=== PATIENT | male | born 1980 | race Caucasian/White ===

== ENCOUNTER 2018-09-25 12:47 | Emergency (ER) | payer OTHER ==
[2018-09-25 13:02] VITALS: BP 129/78
--- NOTE | 2018-09-25 13:41 | RAD ---
EXAM: AP, lateral and open-mouth odontoid views of the cervical spine DATE: 09/25/2018 12:59 PM CLINICAL HISTORY: DECREASED RANGE OF MOTION, PAIN RADIATING DOWN LEFT ARM. HX OF NECK SX. COMPARISON: None available. FINDINGS: On the lateral view, the cervical spine is imaged from the skull base to anterior superior T1. Vertebral body heights are preserved. Postoperative changes of C6-7 anterior cervical discectomy and fusion with solid fusion is seen without hardware complication. No evidence of acute fracture. Intervertebral disc heights are preserved. Mild straightening of the normal cervical lordosis. No spondylolisthesis. Normal predental space. No significant prevertebral soft tissue swelling. IMPRESSION: 1. Anterior cervical discectomy and fusion C6-7, solidly healed, without interval hardware complication 2. Negative acute fracture or subluxation. Electronically signed by: Zeb Love MD (09/25/2018 1:37 PM) [facility]
[2018-09-25] MEDS ORDERED: PRED-220 PO (13:43)
--- NOTE | 2018-09-25 13:44 | PHYS DOC ---
Past History Past Medical History: No Pertinent History Past Surgical History: Other Alcohol Use: None Drug Use: None Adult General Chief Complaint Chief Complaint: Neck Pain HPI HPI 38-year-old male presents with neck pain. The patient woke up this morning with increased neck pain worse on the left. The patient has intermittent episodes like this for many years. Usually it improves in one to 2 days on its own. He sometimes takes a few days of steroids. He came to the ED today because he had a new symptom of shooting pain down the left arm mostly over the deltoid muscle and down toward the elbow but not past the elbow. These waves seemed to calm at random. He also has decreased range of motion due to pain. He recently had [facility] [place] [employer] [facility], but has not gotten the results yet. He has a previous plate and screws of C5-C6. He denies fever or chills. He denies any recent trauma. His only increased activity has been extra running as he is training for a marathon. Review of Systems Review of Systems Constitutional: Denies fever or chills [] Eyes: Denies change in visual acuity, redness, or eye pain [] HENT: Neck pain[] Respiratory: Denies cough or shortness of breath [] Cardiovascular: No additional information not addressed in HPI [] GI: Denies abdominal pain, nausea, vomiting, bloody stools or diarrhea [] : Denies dysuria or hematuria [] Musculoskeletal: Denies back pain or joint pain [] Integument: Denies rash or skin lesions [] Neurologic: Denies headache, focal weakness or sensory changes [] Endocrine: Denies polyuria or polydipsia [] All other systems were reviewed and found to be within normal limits, except as documented in this note. Current Medications Current Medications Current Medications Medications (Trade) Dose Ordered Sig/[facility] Start Time Stop Time Status Last Admin Dose Admin Prednisone (Prednisone) 60 mg 1X ONCE 09/25/18 13:45 09/25/18 13:46 UNV Allergies Allergies Allergies Coded Allergies Type Severity Reaction Last Updated Verified No Known Drug Allergies 09/25/18 No Physical Exam Physical Exam Constitutional: Well developed, well nourished, no acute distress, non-toxic appearance. [] HENT: Normocephalic, atraumatic, bilateral external ears normal, oropharynx moist, no oral exudates, nose normal. [] Eyes: PERRLA, EOMI, conjunctiva normal, no discharge. [] Neck: Decreased range of motion due to pain. Paraspinal muscle tenderness worse on the left, mostly over the trapezius distribution. Recreation of pain symptoms with pressure on the first rib on the left.[] Cardiovascular:Heart rate regular rhythm, no murmur [] Lungs & Thorax: Bilateral breath sounds clear to auscultation [] Abdomen: Bowel sounds normal, soft, no tenderness, no masses, no pulsatile masses. [] Skin: Warm, dry, no erythema, no rash. [] Back: No tenderness, no CVA tenderness. [] Extremities: No tenderness, no cyanosis, no clubbing, ROM intact, no edema. [] Neurologic: Alert and oriented X 3, normal motor function, normal sensory function, no focal deficits noted. [] Psychologic: Affect normal, judgement normal, mood normal. [] Current Patient Data Vital Signs Vital Signs Date Time Temp Pulse Resp B/P (MAP) Pulse Ox O2 Delivery O2 Flow Rate FiO2 09/25/18 13:02 98.1 63 18 100 Room Air EKG EKG [] Radiology/Procedures Radiology/Procedures [] Impressions: EXAM: AP, lateral and open-mouth odontoid views of the cervical spine DATE: 09/25/2018 12:59 PM CLINICAL HISTORY: DECREASED RANGE OF MOTION, PAIN RADIATING DOWN LEFT ARM. HX OF NECK SX. COMPARISON: None available. FINDINGS: On the lateral view, the cervical spine is imaged from the skull base to anterior superior T1. Vertebral body heights are preserved. Postoperative changes of C6-7 anterior cervical discectomy and fusion with solid fusion is seen without hardware complication. No evidence of acute fracture. Intervertebral disc heights are preserved. Mild straightening of the normal cervical lordosis. No spondylolisthesis. Normal predental space. No significant prevertebral soft tissue swelling. IMPRESSION: 1. Anterior cervical discectomy and fusion C6-7, solidly healed, without interval hardware complication 2. Negative acute fracture or subluxation. Electronically signed by: Zeb Love MD (09/25/2018 1:37 PM) [facility] DICTATED AND SIGNED BY: ZEB LOVE MD DATE: 09/25/18 [id number] CC: AJ HAMPTON DO; TWAN SMALLWOOD Course & Med Decision Making Course & Med Decision Making Pertinent Labs and Imaging studies reviewed. (See chart for details) I believe the patient is having nerve irritation and reflux muscle spasms likely from sleeping and opposition. Does not appear to show any acute findings. There does seem to be worse disc narrowing on the left side of C6-C7. I will treat him with 60 mg of prednisone in the ED followed by 4 more days at 50 mg a day. He is stable for discharge at this time. [] Dragon Disclaimer Dragon Disclaimer This electronic medical record was generated, in whole or in part, using a voice recognition dictation system. Departure Departure: Impression: Primary Impression: Degenerative disc disease, cervical Additional Impression: Cervical radiculopathy Disposition: 01 HOME, SELF-CARE Condition: STABLE Referrals: TWAN SMALLWOOD (PCP) Patient Instructions: Cervical Radiculopathy, [id number] Scripts Prednisone (PREDNISONE) 10 Mg Tablet 50 MG PO DAILY for neck pain for 5 Days, #25 TAB Prov: AJ HAMPTON DO 09/25/18 Problem Qualifiers AJ HAMPTON DO Sep 25, 2018 13:43
[2018-09-25] MEDS ORDERED: predniSONE 20 MG TABLET PO ONE (13:45)
== END 2018-09-25 13:55 | disposition home or self-care (01) ==
LOC: ER 12:47
DX: M50.323 Other cervical disc degeneration at C6-C7 level (principal); M54.12 Radiculopathy, cervical region
CPT/HCPCS: 72040; 99283; J7512